=== PATIENT | male | born 2000 | race Caucasian/White ===

== ENCOUNTER 2023-01-14 08:08 | Emergency (ER) | payer OTHER ==
[~2023-01-14] VITALS: Ht 170.2 cm; Wt 109.0 kg
[2023-01-14 08:21] VITALS: BP 143/88; PULSE 124; RESP 18; TEMP 99
[2023-01-14] MEDS ORDERED: HERB1CAP2 PO (08:22)
[2023-01-14] MEDS ORDERED: PEG 3350/NA SULF,BICARB,CL/KCL 4000 ML SOLUTION PO ONE (12:00)
[2023-01-14] MEDS ORDERED: PHENOBARB/HYOSCY/ATROPINE/SCOP 5 ML UDCUP ELIXIR PO ONE (12:45)
== END 2023-01-14 12:48 | disposition home or self-care (01) ==
LOC: EMS 08:08
DX: K59.00 Constipation, unspecified (principal); F84.0 Autistic disorder
CPT/HCPCS: 99283